=== PATIENT | female | born 1965 | race Two or more races ===

== ENCOUNTER 2020-09-12 11:15 | Inpatient (IN) | payer OTHER ==
[~2020-09-12] VITALS: Ht 160 cm; Wt 57.2 kg
[2020-09-12] MEDS ORDERED: COZAAR25 MG PO (14:39)
[2020-09-12] MEDS ORDERED: EFFEXOR XR75 MG PO (14:39)
[2020-09-12] MEDS ORDERED: CLONAZEPAM0.5 MG PO (14:40)
[2020-09-12] MEDS ORDERED: PROTONIX40 MG PO (14:40)
[2020-09-28] MEDS ORDERED: ENALAPRIL MALE2.5 MG (08:56)
[2020-10-01] MEDS ORDERED: PERCOCET 5-3251 EACH PO (12:56)
== END 2020-10-01 16:26 | disposition home or self-care (01) | DRG 331 ==
LOC: SURG 09-28 07:36 → O/R 09-28 07:36 → SURH 09-28 11:15 → SURG 09-28 14:51
PROVIDERS: ADMIT Surgery; ATTEND Surgery
PROC: 07BD4ZX Excision of Aortic Lymphatic, Percutaneous Endoscopic Approach, Diagnostic (ICD-10-PCS; 2020-09-28)
PROC: 3E0F7SF Introduction of Other Gas into Respiratory Tract, Via Natural or Artificial Opening (ICD-10-PCS; 2020-09-28)
PROC: 0DTK4ZZ Resection of Ascending Colon, Percutaneous Endoscopic Approach (ICD-10-PCS; principal; 2020-09-28 14:45)
DX: C18.1 Malignant neoplasm of appendix (principal); R59.0 Localized enlarged lymph nodes; R11.0 Nausea

== ENCOUNTER 2020-09-17 06:28 | Day surgery (SDC) | payer OTHER ==
[~2020-09-17 06:28] MED LIST: CLONAZEPAM0.5 MG PO; COZAAR25 MG PO; EFFEXOR XR75 MG PO; PROTONIX40 MG PO
== END 2020-09-17 11:15 | disposition home or self-care (01) ==
LOC: AMB-ENDOS 06:28
PROVIDERS: ATTEND Surgery
DX: K62.89 Other specified diseases of anus and rectum (principal); Z20.822 Contact with and (suspected) exposure to COVID-19